=== PATIENT | male | born 1990 | race Two or more races ===

== ENCOUNTER 2024-08-07 13:16 | Outpatient (CLI) | payer OTHER | END 2024-08-07 13:24 | disposition home or self-care (01) | LOC: SONOGRAMA 13:16 | PROVIDERS: ATTEND General Practice | DX: N44.00 Torsion of testis, unspecified (principal); N50.819 Testicular pain, unspecified; D29.20 Benign neoplasm of unspecified testis ==

== ENCOUNTER 2024-12-10 15:10 | Emergency (ER) | payer OTHER ==
[~2024-12-10] VITALS: Ht 174 cm; Wt 86.2 kg
[2024-12-10 17:19] LABS: BASO % 0.4 % (0.1-1.2); EOS # 0.00 (0.04-0.54); EOS % 0.0 % (0.7-7.0); LYMPH # 0.56 (1.18-3.74); LYMPH % 23.4 % (19.3-53.1); MEAN PLATELET VOLUME 9.90 fl (9.4-12.4); MONO # 0.24 (0.24-0.82); MONO % 10.0 % (4.7-12.5); NEUT # 1.57 (1.56-6.13); NEUT % 65.8 % (34.0-71.1); RED CELL DISTRIBUTION WIDTH 11.7 % (11.6-14.4)
[2024-12-10 17:41] LABS: ALT/SGPT 25.0 U/L (12-78); AST/SGOT 35.0 U/L (15-37); BILIRUBIN TOTAL 0.4 mg/dL (0.3-1.2); BUN CREA RATIO 8.0 (7.0-25.0); CREATININE SERUM 0.99 mg/dL (0.70-1.30); GFR 85.53; GLOBULINA 2.9 G/DL (2.4-3.5); GLUCOSE FASTING 106.0 mg/dL (65-100); OSMOLALITY SERUM 280.0 MOSM/KG (275-295)
[2024-12-10] MEDS ORDERED: ACETAMINOPHEN500 M1 PO (17:41)
[2024-12-10 18:08] LABS: COVID-19 AG NEGATIVE (NEGATIVE)
== END 2024-12-10 18:53 | disposition home or self-care (01) ==
LOC: ER 15:10
PROVIDERS: Preventive Medicine Public Health & General Preventive Medicine
DX: B34.9 Viral infection, unspecified (principal); Z20.822 Contact with and (suspected) exposure to COVID-19